=== PATIENT | female | born 1985 | race Caucasian/White ===

== ENCOUNTER 2017-10-17 12:16 | Emergency (ER) | payer SELFPAY ==
[~2017-10-17] VITALS: Ht 152.4 cm; Wt 64.0 kg
[~2017-10-17 12:16] MED LIST: BACT800T5 PO
[2017-10-17 12:53] VITALS: BP 151/92; PULSE 120; RESP 17; TEMP 99.2; O2SAT 99
[2017-10-17] MEDS ORDERED: SODIUM CHLOR 0.9% 1000 ML INJ 1,000 ML IV ONE (13:15)
[2017-10-17] MEDS ORDERED: ASPIRIN 325 MG TAB PO ONE (13:15)
[2017-10-17 13:21] VITALS: BP 126/82; PULSE 98; RESP 24; O2SAT 100
--- NOTE | 2017-10-17 13:30 | PD ---
HPI Chief Complaint: Chest Pain Time Seen by Provider: 13:07 Travel History International Travel<30 days: Yes Contact w/Intl Traveler<30days: [place] Country Traveled to: [place] Traveled to known affect area: No History of Present Illness HPI 32-year-old female that presents to the ED for evaluation of left-sided chest pain that she has had for about 4 days now. Per patient comes and goes. Per patient is pressure-like. No problems with anything. She is been having a headache as well as left-sided neck pain. No history of heart disease on her cell but she does have a family history of heart disease on her mother with her mother having at a young age in her 50s secondary to heart disease. No urinary or bowel movement issues. Patient states having some nausea. No shortness of breath with it. 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 She states that she has been feeling nauseous as well and has thrown up a couple times. Denies any abdominal pain. No diarrhea. No bowel movement issues but states having some urinary frequency and dysuria. Denies any vaginal discharge. No possibility of . No recent surgeries. She does state that she recently travel to [place] about a month ago. Denies any fevers chills or sweats. No cough or congestion. Nothing makes the discomfort better or worse. PFSH Past Medical History Diminished Hearing: No Gastrointestinal Disorders: Yes (hernia) ?: Unknown LMP: 10/16/17 : 2 Para: 2 Past Surgical History Surgical History: No Previous Surgery Social History Alcohol Use: Yes (occ.) Tobacco Use: No Substance Use: No Allergies-Medications (Allergen,Severity, Reaction): Coded Allergies: No Known Allergies (Verified , 03/23/15) Reported Meds & Prescriptions Reported Meds & Active Scripts Active Diclofenac Sodium DR (Diclofenac Sodium) 75 Mg Tabdr 75 Mg PO BID PRN Review of Systems Except as stated in HPI: all other systems reviewed are Neg Physical Exam Narrative GENERAL: SKIN: Warm and dry. HEAD: Atraumatic. Normocephalic. EYES: Pupils equal and round. No scleral icterus. No injection or drainage. ENT: No nasal bleeding or discharge. Mucous membranes pink and moist. Tongue is midline. No uvula deviation. NECK: Trachea midline. No JVD. CARDIOVASCULAR: Sinus tachycardic rate and rhythm. No murmurs, S3, S4. RESPIRATORY: No accessory muscle use. Clear to auscultation. Breath sounds equal bilaterally. GASTROINTESTINAL: Abdomen soft, non-tender, nondistended. Hepatic and splenic margins not palpable. MUSCULOSKELETAL: Extremities without clubbing, cyanosis, or edema. No obvious deformities. Full range of motion of the upper and lower extremities bilaterally. 2+ pulses bilaterally. NEUROLOGICAL: Awake and alert. No obvious cranial nerve deficits. Motor grossly within normal limits. Five out of 5 muscle strength in the arms and legs. Normal speech. PSYCHIATRIC: Appropriate mood and affect; insight and judgment normal. Data Data Last Documented VS Vital Signs Date Time Temp Pulse Resp B/P (MAP) Pulse Ox O2 Delivery O2 Flow Rate FiO2 10/17/17 15:22 75 16 110/63 (79) 100 Room Air 10/17/17 13:38 97.8 Orders Orders Electrocardiogram (10/17/17 13:14) Complete Blood Count With Diff (10/17/17 13:14) Comprehensive Metabolic Panel (10/17/17 13:14) Ckmb (Isoenzyme) Profile (10/17/17 13:14) Troponin I (10/17/17 13:14) Prothrombin Time / Inr (Pt) (10/17/17 13:14) Act Partial Throm Time (Ptt) (10/17/17 13:14) Lipase (10/17/17 13:14) Urinalysis - C+S If Indicated (10/17/17 13:14) D-Dimer (10/17/17 13:14) Magnesium (Mg) (10/17/17 13:14) Chest, Single Ap (10/17/17 13:14) Iv Access Insert/Monitor (10/17/17 13:14) Ecg Monitoring (10/17/17 13:14) Oximetry (10/17/17 13:14) Ed Urine Pregnancytest Poc (10/17/17 13:14) Aspirin (Aspirin) (10/17/17 13:15) Sodium Chlor 0.9% 1000 Ml Inj (Ns 1000 M (10/17/17 13:15) Sodium Chlor 0.9% 1000 Ml Inj (Ns 1000 M (10/17/17 15:00) Ketorolac Inj (Toradol Inj) (10/17/17 15:00) Troponin I (10/17/17 14:49) Ed Discharge Order (10/17/17 16:07) Labs Laboratory Tests Test 10/17/17 13:20 10/17/17 13:30 10/17/17 15:15 White Blood Count 9.0 TH/MM3 Red Blood Count 5.06 MIL/MM3 Hemoglobin 14.2 GM/DL Hematocrit 42.0 % Mean Corpuscular Volume 82.9 FL Mean Corpuscular Hemoglobin 28.1 PG Mean Corpuscular Hemoglobin Concent 33.8 % Red Cell Distribution Width 13.6 % Platelet Count 382 TH/MM3 Mean Platelet Volume 8.3 FL Neutrophils (%) (Auto) 68.2 % Lymphocytes (%) (Auto) 23.8 % Monocytes (%) (Auto) 5.6 % Eosinophils (%) (Auto) 1.8 % Basophils (%) (Auto) 0.6 % Neutrophils # (Auto) 6.2 TH/MM3 Lymphocytes # (Auto) 2.2 TH/MM3 Monocytes # (Auto) 0.5 TH/MM3 Eosinophils # (Auto) 0.2 TH/MM3 Basophils # (Auto) 0.1 TH/MM3 CBC Comment DIFF FINAL Differential Comment Prothrombin Time 11.3 SEC Prothromb Time International Ratio 1.1 RATIO Activated Partial Thromboplast Time 29.2 SEC D-Dimer Quantitative (PE/DVT) LESS THAN 0.19 MG/L FEU Blood Urea Nitrogen 9 MG/DL Creatinine 0.65 MG/DL Random Glucose 80 MG/DL Total Protein 8.8 GM/DL Albumin 4.5 GM/DL Calcium Level 9.0 MG/DL Magnesium Level 2.1 MG/DL Alkaline Phosphatase 100 U/L Aspartate Amino Transf (AST/SGOT) 17 U/L Alanine Aminotransferase (ALT/SGPT) 27 U/L Total Bilirubin 0.6 MG/DL Sodium Level 139 MEQ/L Potassium Level 4.3 MEQ/L Chloride Level 105 MEQ/L Carbon Dioxide Level 25.2 MEQ/L Anion Gap 9 MEQ/L Estimat Glomerular Filtration Rate 106 ML/MIN Total Creatine Kinase 73 U/L Troponin I LESS THAN 0.02 NG/ML LESS THAN 0.02 NG/ML Lipase 151 U/L Urine Color YELLOW Urine Turbidity CLEAR Urine pH 5.5 Urine Specific [place] 1.015 Urine Protein NEG mg/dL Urine Glucose (UA) NEG mg/dL Urine Ketones NEG mg/dL Urine Occult Blood SMALL Urine Nitrite NEG Urine Bilirubin NEG Urine Urobilinogen 0.2 MG/DL Urine Leukocyte Esterase TRACE Urine RBC 1 /hpf Urine WBC 1 /hpf Urine Squamous Epithelial Cells 2 /hpf Urine Mucus FEW /lpf Microscopic Urinalysis Comment CULT NOT INDICATED MDM Medical Decision Making Medical Screen Exam Complete: Yes Emergency Medical Condition: Yes Medical Record Reviewed: Yes Interpretation(s) EKG shows sinus rhythm with no sign of acute ischemia or arrhythmia read by me and attending. CBC & BMP Diagram 10/17/17 13:20 Total Protein 8.8 H, Albumin 4.5, Calcium Level 9.0, Magnesium Level 2.1, Alkaline Phosphatase 100, Aspartate Amino Transf (AST/SGOT) 17, Alanine Aminotransferase (ALT/SGPT) 27, Total Bilirubin 0.6 lipase WNL troponin and CKMB negative Last Impressions Chest X-Ray 10/17/17 1314 Signed Impressions: Service Date/Time: Tuesday, October 17, 2017 13:26 - CONCLUSION: Slightly elevated right diaphragm of uncertain chronicity. Munir Mendoza MD UA negative Differential Diagnosis Chest pain versus a typical chest pain versus PE versus ACS versus GERD versus UTI versus dehydration Narrative Course 32-year-old female that presents to the ED for evaluation of left-sided chest pain. Patient was properly examined and was found to have signs and symptoms of unclear etiology at this time but definite concerning for ACS versus PE. Labs and imaging order. Patient was started on aspirin and given IV fluids. Labs and imaging showed old no sign of acute disease. D-dimer was negative. Troponin was negative. My attending Dr. Diaz evaluated the patient recommends delta troponin. This was done and was negative. Patient was reassured. My attending agrees that this is likely more viral illness. She has low probability of ACS. Patient understands that she is to follow-up with her PCP for evaluation of this. Patient was given a prescription for Zofran for her nausea and vomiting as well as diclofenac sodium for her pain. Close follow-up with PCP. See ED if worsening symptoms. Diagnosis Primary Impression: Atypical chest pain Additional Impression: Nausea & vomiting Qualified Codes: R11.2 - Nausea with vomiting, unspecified Patient Instructions: General Instructions Additional Instructions: Take medication as prescribed. Follow-up with PCP. See ED if worst. Med/Other Pt SpecificInfo: Prescription(s) given Scripts Ondansetron Odt (Zofran Odt) 4 Mg Tab 4 MG SL Q6HR Y for Nausea/Vomiting, #15 TAB 0 Refills Prov: Miriam Diaz MD 10/17/[address] (Diclofenac Sodium DR) 75 Mg Tabdr 75 MG PO BID Y for PAIN SCALE 1 TO 10, #20 TAB 0 Refills Prov: Miriam Diaz MD 10/17/17 Disposition: 01 DISCHARGE HOME Condition: Stable Leo Trotter October 17, 2017 13:30
[2017-10-17 13:33] LABS: AUTOMATED NEUTROPHIL # 6.2 TH/MM3 (1.8-7.7); BASOPHIL # 0.1 TH/MM3 (0-0.2); BASOPHIL % 0.6 % (0.0-2.0); EOSINOPHIL # 0.2 TH/MM3 (0-0.4); EOSINOPHIL % 1.8 % (0.0-4.0); HEMOGLOBIN 14.2 GM/DL (11.6-15.3); LYMPH % 23.8 % (9.0-44.0); LYMPHOCYTE # 2.2 TH/MM3 (1.0-4.8); MEAN CELL VOLUME 82.9 FL (80.0-100.0); MEAN CORPUSCULAR HEMOGLOBIN 28.1 PG (27.0-34.0); MEAN CORPUSCULAR HGB CONC 33.8 % (32.0-36.0); MEAN PLATELET VOLUME 8.3 FL (7.0-11.0); MONO % 5.6 % (0.0-8.0); MONOCYTE # 0.5 TH/MM3 (0-0.9); NEUT % 68.2 % (16.0-70.0); PLATELET COUNT 382 TH/MM3 (150-450); RED BLOOD COUNT 5.06 MIL/MM3 (4.00-5.30); RED CELL DISTRIBUTION WIDTH 13.6 % (11.6-17.2)
[2017-10-17 13:38] VITALS: BP 126/82; PULSE 95; RESP 16; TEMP 97.8; O2SAT 99
[2017-10-17 13:43] LABS: INTERNATIONAL NORMALIZED RATIO 1.1 RATIO; PROTHROMBIN TIME - PATIENT 11.3 SEC (9.8-11.6)
[2017-10-17 13:47] LABS: BILIRUBIN, URINE NEG (NEG); BLOOD, URINE SMALL (NEG); GLUCOSE,URINE NEG (NEG); KETONE, URINE NEG (NEG); NITRITE,URINE NEG (NEG); PH, URINE 5.5 (5.0-8.5); URINE COLOR YELLOW (YELLW/STRAW); URINE LEUKOCYTE ESTERASE TRACE (NEG)
[2017-10-17 13:48] LABS: D-DIMER LESS THAN 0.19 MG/L FEU (0.00-0.50)
[2017-10-17 13:49] LABS: MUCUS URINE FEW /lpf (OCC); SQUAMOUS EPITHELIAL CELL URINE 2 /hpf (0-5)
[2017-10-17 13:56] LABS: ALBUMIN 4.5 GM/DL (3.4-5.0); ALT (GPT) 27 U/L (10-53); AST (GOT) 17 U/L (15-37); BICARBONATE 25.2 MEQ/L (21.0-32.0); BLOOD UREA NITROGEN 9 MG/DL (7-18); CHLORIDE 105 MEQ/L (98-107); CREATININE 0.65 MG/DL (0.50-1.00); GLOMERULAR FILTRATION RATE 106 ML/MIN (>89); GLUCOSE,RANDOM 80 MG/DL (74-106); MAGNESIUM 2.1 MG/DL (1.5-2.5); SODIUM (NA) 139 MEQ/L (136-145)
[2017-10-17 14:01] LABS: ALKALINE PHOSPHATASE 100 U/L (45-117); TOTAL BILIRUBIN ADULT 0.6 MG/DL (0.2-1.0); TOTAL PROTEIN 8.8 GM/DL (6.4-8.2); TROPONIN I LESS THAN 0.02 NG/ML (0.02-0.05)
--- NOTE | 2017-10-17 14:08 | RADRPT ---
EXAM DATE/TIME: 10/17/2017 13:26 [facility] COMPARISON: No previous studies available for comparison. INDICATIONS : Chest pain. MEDICAL HISTORY : Hernia, umbilical. SURGICAL HISTORY : None. ENCOUNTER: Initial ACUITY: 1 day PAIN SCORE: 8/10 LOCATION: Bilateral chest FINDINGS: Slight asymmetric elevation of the right diaphragm of undetermined chronicity. Lungs focally clear. N o significant effusion. Cardiac contours are satisfactory. Thoracic skeleton appears grossly intact. CONCLUSION: Slightly elevated right diaphragm of uncertain chronicity. Munir Mendoza MD on October 17, 2017 at 14:05 Board Certified Radiologist. This report was verified electronically.
[2017-10-17] MEDS ORDERED: SODIUM CHLOR 0.9% 1000 ML INJ 1,000 ML IV SCH (15:00)
[2017-10-17] MEDS ORDERED: KETOROLAC TROMETHAMINE 30 MG/ML (IVP) VIAL IV PUSH ONE (15:00)
[2017-10-17 15:22] VITALS: BP 110/63; PULSE 75; RESP 16; O2SAT 100
[2017-10-17] MEDS ORDERED: DICL75TA PO (16:08)
[2017-10-17] MEDS ORDERED: ZOFR4TAB3 SL (16:09)
--- NOTE | 2017-10-17 16:46 | PD ---
Data Data Last Documented VS Vital Signs Date Time Temp Pulse Resp B/P (MAP) Pulse Ox O2 Delivery O2 Flow Rate FiO2 10/17/17 16:33 10/17/17 15:22 75 16 100 Room Air 10/17/17 13:38 97.8 Orders Orders Electrocardiogram (10/17/17 13:14) Complete Blood Count With Diff (10/17/17 13:14) Comprehensive Metabolic Panel (10/17/17 13:14) Ckmb (Isoenzyme) Profile (10/17/17 13:14) Troponin I (10/17/17 13:14) Prothrombin Time / Inr (Pt) (10/17/17 13:14) Act Partial Throm Time (Ptt) (10/17/17 13:14) Lipase (10/17/17 13:14) Urinalysis - C+S If Indicated (10/17/17 13:14) D-Dimer (10/17/17 13:14) Magnesium (Mg) (10/17/17 13:14) Chest, Single Ap (10/17/17 13:14) Iv Access Insert/Monitor (10/17/17 13:14) Ecg Monitoring (10/17/17 13:14) Oximetry (10/17/17 13:14) Ed Urine Pregnancytest Poc (10/17/17 13:14) Aspirin (Aspirin) (10/17/17 13:15) Sodium Chlor 0.9% 1000 Ml Inj (Ns 1000 M (10/17/17 13:15) Sodium Chlor 0.9% 1000 Ml Inj (Ns 1000 M (10/17/17 15:00) Ketorolac Inj (Toradol Inj) (10/17/17 15:00) Troponin I (10/17/17 14:49) Ed Discharge Order (10/17/17 16:07) Labs Laboratory Tests Test 10/17/17 13:20 10/17/17 13:30 10/17/17 15:15 White Blood Count 9.0 TH/MM3 Red Blood Count 5.06 MIL/MM3 Hemoglobin 14.2 GM/DL Hematocrit 42.0 % Mean Corpuscular Volume 82.9 FL Mean Corpuscular Hemoglobin 28.1 PG Mean Corpuscular Hemoglobin Concent 33.8 % Red Cell Distribution Width 13.6 % Platelet Count 382 TH/MM3 Mean Platelet Volume 8.3 FL Neutrophils (%) (Auto) 68.2 % Lymphocytes (%) (Auto) 23.8 % Monocytes (%) (Auto) 5.6 % Eosinophils (%) (Auto) 1.8 % Basophils (%) (Auto) 0.6 % Neutrophils # (Auto) 6.2 TH/MM3 Lymphocytes # (Auto) 2.2 TH/MM3 Monocytes # (Auto) 0.5 TH/MM3 Eosinophils # (Auto) 0.2 TH/MM3 Basophils # (Auto) 0.1 TH/MM3 CBC Comment DIFF FINAL Differential Comment Prothrombin Time 11.3 SEC Prothromb Time International Ratio 1.1 RATIO Activated Partial Thromboplast Time 29.2 SEC D-Dimer Quantitative (PE/DVT) LESS THAN 0.19 MG/L FEU Blood Urea Nitrogen 9 MG/DL Creatinine 0.65 MG/DL Random Glucose 80 MG/DL Total Protein 8.8 GM/DL Albumin 4.5 GM/DL Calcium Level 9.0 MG/DL Magnesium Level 2.1 MG/DL Alkaline Phosphatase 100 U/L Aspartate Amino Transf (AST/SGOT) 17 U/L Alanine Aminotransferase (ALT/SGPT) 27 U/L Total Bilirubin 0.6 MG/DL Sodium Level 139 MEQ/L Potassium Level 4.3 MEQ/L Chloride Level 105 MEQ/L Carbon Dioxide Level 25.2 MEQ/L Anion Gap 9 MEQ/L Estimat Glomerular Filtration Rate 106 ML/MIN Total Creatine Kinase 73 U/L Troponin I LESS THAN 0.02 NG/ML LESS THAN 0.02 NG/ML Lipase 151 U/L Urine Color YELLOW Urine Turbidity CLEAR Urine pH 5.5 Urine Specific [place] 1.015 Urine Protein NEG mg/dL Urine Glucose (UA) NEG mg/dL Urine Ketones NEG mg/dL Urine Occult Blood SMALL Urine Nitrite NEG Urine Bilirubin NEG Urine Urobilinogen 0.2 MG/DL Urine Leukocyte Esterase TRACE Urine RBC 1 /hpf Urine WBC 1 /hpf Urine Squamous Epithelial Cells 2 /hpf Urine Mucus FEW /lpf Microscopic Urinalysis Comment CULT NOT INDICATED MDM Supervised Visit with RHETT: Yes Narrative Course The history, exam, and medical decision-making in the associated midlevel provider note were completed with my assistance. I reviewed and agree with the findings presented. I attest that I had a [id number] encounter with the patient on the same day, and personally performed and documented my assessment and findings in the medical record. *My assessment and Findings: This is a 32-year-old female who presents to the emergency department with atypical chest pain and some vomiting. On exam she looks somewhat dehydrated. Labs are reassuring including a normal troponin 2. I do not suspect this is cardiac in etiology and I think she has a viral syndrome. She was given IV fluids. I think she is safe to be discharged and follow-up with her primary care physician. She will return to the emergency department if her symptoms worsen. Diagnosis Primary Impression: Atypical chest pain Additional Impression: Nausea & vomiting Qualified Codes: R11.2 - Nausea with vomiting, unspecified Referrals: Primary Care Physician as needed Patient Instructions: General Instructions, Chest Pain (ED), Acute Nausea and Vomiting (ED) Departure Forms: Tests/Procedures Additional Instruction: Take medication as prescribed. Follow-up with PCP. See ED if worst. Scripts Ondansetron Odt (Zofran Odt) 4 Mg Tab 4 MG SL Q6HR Y for Nausea/Vomiting, #15 TAB 0 Refills Prov: Miriam Diaz MD 10/17/[address] (Diclofenac Sodium DR) 75 Mg Tabdr 75 MG PO BID Y for PAIN SCALE 1 TO 10, #20 TAB 0 Refills Prov: Miriam Diaz MD 10/17/17 Disposition: 01 DISCHARGE HOME Condition: Stable Miriam Diaz MD October 17, 2017 16:46
--- NOTE | 2017-10-18 16:30 | EKG ---
Date Performed: 10/17/2017 Time Performed: 13:09:31 PTAGE: 32 years EKG: Sinus rhythm NORMAL ECG INTERPRETATION BASED ON A DEFAULT AGE OF 41 YEARS when compared to prior ekg, patient pre viously had a rightbundle branch block and is now in regular ryhthm PREVIOUS TRACING : 07/22/2011 22.04 DOCTOR: Abby Gómez Interpretating Date/Time 10/18/2017 16:28:50
--- NOTE | 2017-10-18 16:30 | EKG ---
Date Performed: 10/17/2017 Time Performed: 15:38:26 PTAGE: 32 years EKG: Sinus rhythm NORMAL ECG Since the PREVIOUS TRACING , no significant change noted PREVIOUS TRACIN10/17/2017 13.09 DOCTOR: Abby Gómez Interpretating Date/Time 10/18/2017 16:28:59
== END 2017-10-17 16:33 | disposition home or self-care (01) ==
LOC: NEPE 12:16
DX: R07.89 Other chest pain (principal); R11.2 Nausea with vomiting, unspecified; R30.0 Dysuria
CPT/HCPCS: 71045; 80053; 81001; 82550; 83690; 83735; 84484; 84703; 85025; 85379; 85610; 85730; 93005; 96361; 96374; 99285; J1885; J7030